=== PATIENT | female | born 2000 ===

== ENCOUNTER 2020-06-27 09:29 | Outpatient (CLI) | payer MEDICAID ==
[2020-06-27 09:52] VITALS: BP 121/74
[2020-06-27] MEDS ORDERED: LACTATED RINGERS 500 ML IV ONE (09:59)
[2020-06-27] MEDS ORDERED: LACTATED RINGERS 1,000 ML ONE (10:02)
[2020-06-27] MEDS ORDERED: ONDANSETRON 4 MG/2 ML INJ IV PRN (10:30)
[2020-06-27] MEDS ORDERED: MORPHINE 4 MG/1 ML INJ IV ONE (10:42)
[2020-06-27] MEDS ORDERED: MORPHINE 4 MG/1 ML INJ ONE (10:46)
[2020-06-27 13:02] LABS: Hematocrit 32.2 % (30.3-42.9); Hemoglobin 10.4 gm/dl (10.1-14.3); Mean Corpuscular HGB Conc 32 % (30-34); Mean Corpuscular Volume 89 fl (79-97); Platelet Count 358 K/mm3 (140-440); Red Blood Count 3.63 M/mm3 (3.65-5.03); Red Cell Distribution Width 14.2 % (13.2-15.2)
[2020-06-27 13:27] LABS: Alanine Aminotransferase 10 units/L (7-56); Albumin 3.5 g/dL (3.9-5); Blood Urea Nitrogen 11 mg/dL (7-17); Hemolysis Index 4
[2020-06-27 13:46] LABS: BUN/Creatinine Ratio 22
[2020-06-27 14:52] LABS: Basophils % (Manual) 0 % (0.0-1.8); Eosinophils % (Manual) 0 % (0.0-4.3); Platelet Estimate Consistent w Auto; Total Cells Counted 100
--- NOTE | 2020-06-27 15:25 | Ultrasound Report ---
Renal ultrasound INDICATION: Right flank pain. Left flank pain FINDINGS: Both kidneys measure about 12 cm in length and there is mild hydronephrosis bilaterally, ri ght worse than left. A small amount of debris is noted within the urinary bladder IMPRESSION: Mild bilateral hydronephrosis, slightly worse than right. Signer Name: Jet Sampson MD Signed: 06/27/2020 3:20 PM Workstation Name: [id number]
[2020-06-27 15:34] LABS: Bacteria,Urine 2+ /HPF (Negative); Bilirubin,Urine NEG (Negative); Blood,Urine MOD (Negative); Color,Urine Yellow (Yellow); Mucus,Urine FEW /HPF; Protein,Urine <15 mg/dL mg/dL (Negative); Urobilinogen,Urine < 2.0 mg/dL (<2.0)
--- NOTE | 2020-06-27 15:55 | Ultrasound Report ---
ULTRASOUND OBSTETRIC INDICATION / CLINICAL INFORMATION: 27 wks, well being. Clinical Gestational Age (GA): TECHNIQUE: Transabdominal. COMPARISON: None available. FINDINGS: There is a single intrauterine cephalic position. Heart Rate: 149 beats per minute. Estimated Weight in grams (if calculated): Estimated Weight Growth Percentile (if calculated): Position: cephalic. Cervix: closed. Length in cm (if measured): Placenta: anterior and free of the os. Amniotic Fluid Volume: normal Amniotic Fluid Index (DEE) in cm (if calculated): 12.8. Maternal Adnexa: No significant abnormality. IMPRESSION: 1. Intrauterine cephalic position, DEE 12.8 Signer Name: Patric Hillman MD Signed: 06/27/2020 3:50 PM Workstation Name: [id number]
--- NOTE | 2020-06-27 15:56 | Ultrasound Report ---
CLINICAL DATA: 27 wks, well being TECHNICAL DATA: Document breath, motion, gestational age, tone, and fluid. FINDINGS: respiration, tone, and motion are well visualized and normal. Amniotic fluid volume is normal. Biophysical profile score is 8/8. The lower uterine segment is evaluated and there is no evidence of placenta previa. heart rate is Heart Rate.149 IMPRESSION: The biophysical profile score is 8/8. Signer Name: Patric Hillman MD Signed: 06/27/2020 3:52 PM Workstation Name: [id number]
[2020-06-27] MEDS ORDERED: cefTRIAXone/NS 1 GM/50 ML 1 GM/50 ML BAG IV SCH (18:00)
== END 2020-06-27 18:49 | disposition home or self-care (01) ==
LOC: TRG 09:29 → APU 09:31 → TRG 18:49
PROVIDERS: ATTEND Obstetrics & Gynecology
DX: O99.89 Other specified diseases and conditions complicating pregnancy, childbirth and the puerperium (principal); N13.30 Unspecified hydronephrosis; O26.892 Other specified pregnancy related conditions, second trimester; R51 Headache; O47.02 False labor before 37 completed weeks of gestation, second trimester; Z3A.27 27 weeks gestation of pregnancy
CPT/HCPCS: 36415; 59025; 76770; 76815; 76819; 80053; 81001; 85007; 85025; 86850; 86900; 86901; 96365; 96366; 96375; J0696; J2270; J2405; J7120; 96360; 96374